=== PATIENT | male | born 1955 | race Caucasian/White ===

== ENCOUNTER → 2018-11-28 10:40 | Outpatient (CLI) | payer OTHER, SELFPAY ==
[2018-11-28 11:16] LABS: Influenza A and B by PCR Rapid Negative (Negative)
== END ==
PROVIDERS: Family Provider Naturopath; PCP Naturopath; Visit Provider Physician Assistant
DX: R68.89 Other general symptoms and signs (principal)
CPT/HCPCS: 87400

== ENCOUNTER → 2019-02-19 11:35 | Outpatient (CLI) | payer OTHER, SELFPAY | PROVIDERS: PCP Naturopath; Visit Provider Naturopath | DX: I49.9 Cardiac arrhythmia, unspecified (principal) | CPT/HCPCS: 93005; 93010 ==

== ENCOUNTER → 2019-03-14 07:27 | Outpatient (CLI) | payer OTHER, SELFPAY ==
--- NOTE | 2019-03-14 07:30 | DI.US.S_ITS ---
PROCEDURE: US THYROID INDICATIONS: HASHIMOTOS; HYPOTHYROIDISM TECHNIQUE: Real-time scanning was performed of the thyroid gland, with image documentation. COMPARISON: None. FINDINGS: Right: Thyroid lobe measures 2.8 x 1.1 x 0.9 cm, and demonstrates diffuse heteroechogenicity. No focal lesions. Left: Thyroid lobe measures 2.0 0.9 x 0.7 cm, and demonstrates diffuse heteroechogenicity. No focal lesions. Isthmus: 2.1 mm thick. IMPRESSION: 1. Diffuse heteroechogenicity within the thyroid without focal lesions. Overall, there is a mild atrophied appearance. Dictated by: Caroline Llanos M.D. on 03/14/2019 at 9:44 Approved by: Caroline Llanos M.D. on 03/14/2019 at 9:46
== END ==
PROVIDERS: PCP Naturopath; Visit Provider Naturopath
DX: E06.3 Autoimmune thyroiditis (principal); E03.9 Hypothyroidism, unspecified; R53.83 Other fatigue
CPT/HCPCS: 76536

== ENCOUNTER → 2020-02-27 15:34 | Outpatient (CLI) | payer OTHER, SELFPAY ==
--- NOTE | 2020-02-27 15:40 | DI.RAD.S_ITS ---
PROCEDURE: XR LUMBAR SPINE MIN 4V INDICATIONS: LOW BACK PAIN/ INJURY TECHNIQUE: 5 views of the lumbar spine were acquired. COMPARISON: None. FINDINGS: Bones: 5 nonrib-bearing vertebrae are present. There is normal bony alignment. No vertebral body compression fractures. No suspicious bony lesions. Mild multilevel and plate osteophyte formation throughout the lumbar and lower thoracic spine. Facet hypertrophy throughout the mid and lower lumbar spine. Soft tissues: Overlying bowel gas pattern is normal. No suspicious soft tissue calcifications. IMPRESSION: 1. Multilevel degenerative disc and facet disease. 2. No acute fracture. No osseous lesion. If symptoms and/or clinical suspicion for pathology persist, further assessment with repeat, or advanced imaging (e.g., CT, MRI, or bone scan) may be helpful for further assessment. Dictated by: Scar Vieira M.D. on 02/27/2020 at 17:21 Approved by: Scar Vieira M.D. on 02/27/2020 at 17:22
== END ==
PROVIDERS: PCP Naturopath; Referring Provider Naturopath; Visit Provider Naturopath
DX: M54.5 Low back pain (principal); M51.36 Other intervertebral disc degeneration, lumbar region; S39.92XA Unspecified injury of lower back, initial encounter; X58.XXXA Exposure to other specified factors, initial encounter
CPT/HCPCS: 72110

== ENCOUNTER 2022-10-19 11:17 | Emergency (ER) | payer MEDICARE, SELFPAY ==
[2022-10-19 11:41] VITALS: BP 126/81; PULSE 77; RESP 14; TEMP 36.7; O2SAT 97; BMI 25.1
[2022-10-19] MEDS: KETOROLAC 30 MG/ML VIAL IM (11:55)
--- NOTE | 2022-10-19 12:15 | DI.RAD.S_ITS ---
PROCEDURE: XR LUMBAR SPINE 2-3V INDICATIONS: low back pain TECHNIQUE: 3 views of the lumbar spine were acquired. COMPARISON: [facility], , XR LUMBAR SPINE MIN 4V, 02/27/2020, 15:43. FINDINGS: Bones: 5 [id number] vertebrae are present. There is normal bony alignment. No vertebral body compression fractures. No suspicious bony lesions. The disc heights are well preserved. Lower lumbar spine facet arthropathy is seen. Soft tissues: Overlying bowel gas pattern is normal. No suspicious soft tissue calcifications. Atherosclerotic calcification is noted. IMPRESSION: Age-appropriate degenerative change seen, with facet arthropathy. If it would be helpful for clinical management decision making, please consider a dedicated, scheduled lumbar spine MRI for further evaluation (assuming that there is no contraindication). Dictated by: Brendon Reese M.D. on 10/19/2022 at 11:36 Approved by: Brendon Reese M.D. on 10/19/2022 at 11:36
[2022-10-19] MEDS: methocarbamoL 500 MG TABLET 750 MG PO (13:50)
--- NOTE | 2022-10-19 14:13 | ED_ITS ---
HPI - Back Pain/Injury General Chief Complaint: Back Pain/Injury Stated Complaint: severe back pain, high bp, swoll prostate Time Seen by Provider: 10/19/22 12:15 Source: patient History of Present Illness HPI Narrative: This is a 67-year-old male who endorses history of BPH for the last 5 years, low back pain with degenerative disc and facet disease who presents to the emergency department for exacerbation of his low back pain with sciatica symptoms down his left leg. Patient is a contract by [email or web address], states that 3 weeks ago he exacerbated his low back by cutting a bunch of firewood and loading it, he is had 2 episodes of severe sharp low back pain with nerve pain down his leg with certain positions and his pain is worse with sitting. He denies numbness or tingling, groin paresthesia, states that his BPH is bothering him and he has had frequent voids at nighttime. He denies rectal pain, pain with defecation, denies fever, chills feeling poorly, or discharge. He denies pain deep to his penis and denies any urinary changes. He would like a referral to Urology and physical therapy to further assess his back pain and states that he does not want steroids if at all possible. He denies any traumatic injury, denies urinary retention or inability to complete void. [facility] to obtain care as he sees a wellness provider who is pay for service. Related Data Home Medications Medication Instructions Recorded Confirmed cholecalciferol (vitamin D3) 125 5,000 unit PO DAILY 03/07/19 10/19/22 mcg (5,000 unit) capsule multivitamin 1 cap PO DAILY 03/07/19 10/19/22 thyroid (pork) 120 mg tablet (WILDLIFE VETERINARIAN 120 mg PO QAM 10/19/22 10/19/22 Thyroid) Previous Rx's Medication Instructions Recorded lidocaine 5 % topical patch 1 patch topical DAILY #30 ea 10/19/22 (Lidoderm) methocarbamol 500 mg tablet 500 mg PO TID PRN muscle spasm #20 10/19/22 tabs Allergies Allergy/AdvReac Type Severity Reaction Status Date / Time No Known Drug Allergies Allergy Verified 10/19/22 11:48 Review of Systems Review of Systems ROS Unobtainable: All systems reviewed & are unremarkable except as noted in HPI and below Patient History Medical History Acne Chicken pox (~1977) Frozen shoulder (~2010) Hearing loss Herpes (~1955) Measles (~1958) Tinnitus Surgical History Anesthesia History of appendectomy (~1972) History of eye surgery (~2007) History of hernia repair (~1975) History of surgery on wrist (~1999) History of tonsillectomy (~1960) History of vascular surgery (~1971) Family History Father Congestive heart failure History of heart disease Mother Dementia Sister Stomach problems Grandfather Alzheimer's disease Grandmother Cancer Grandfather No problems noted. Grandmother Alzheimer's disease Social History Smoking Status: Never smoker second hand exposure: No alcohol intake: current (3 to 4 beers a week and a glass of wine once a week.) substance use type: does not use Smoking Status: Never smoker alcohol intake frequency: 0-2 drinks per day Substance Use Type: does not use Exam Narrative Exam Narrative: Reviewed vitals signs and nursing notes. General: cooperative, comfortable, in no acute distress, well groomed HEENT: symmetrical facial expressions, moist mucous membranes GI: abdomen soft, nontender to palpation, nondistended, without masses, rebound tenderness or exquisite tenderness with exam. MSK: moves all extremities, neurovascularly intact, no weakness, normal tone, sitting upright in chair without distress, nontender over lumbar spine, endorses left-sided sciatica which goes across the top of his hip and down the posterior of his left thigh, no weakness with dorsiflexion or plantar extension, ambulatory with steady gait. Skin: brisk capillary refill, without pallor or erythema Neuro: normal speech and cognition, A&O x3, ambulatory, clear speech Psych: mental status is grossly normal, congruent mood, normal affect, pleasant and cooperative Initial Vital Signs Initial Vital Signs: Vital Signs Temperature 98.1 F 10/19/22 11:41 Pulse Rate 77 10/19/22 11:41 Respiratory Rate 14 10/19/22 11:41 Blood Pressure 126/81 10/19/22 11:41 Pulse Oximetry 97 10/19/22 11:41 Oxygen Delivery Method 10/19/22 11:41 Course Orders Ordered: ED Orders 10/19/22 12:15 XR lumbar spine 2-3V Stat 10/19/22 14:07 Urine Microscopic Stat Discontinued Medications Ketorolac Tromethamine (Ketorolac 30 Mg/Ml Vial) 30 mg IM NOW ONE Stop: 10/19/22 11:54 Last Admin: 10/19/22 11:55 Dose: 30 mg Documented By: IG Methocarbamol (Methocarbamol 500 Mg Tablet) 750 mg PO NOW ONE Stop: 10/19/22 12:16 Last Admin: 10/19/22 13:50 Dose: 750 mg Documented By: GI Vital Signs Vital signs: Vital Signs - 8 hr 10/19/22 11:41 Temperature 98.1 F Pulse Rate 77 Respiratory Rate 14 Blood Pressure 126/81 Pulse Oximetry 97 Oxygen Delivery Method Room Air MDM - Back Pain/Injury Lab Data Labs: Lab Results 10/19/22 Range/Units 14:35 Urine RBC None seen (0-5/HPF) Urine WBC None seen (0-5/HPF) Urine Bacteria None seen (None) Ur Culture Indicated? Cult not indicated Micro UA Comment Microscopic normal Urine Dip Bedside Urine Glucose Negative Bedside Urine Bilirubin - Negative Bedside Urine Ketone - Negative Urine Specific [place] 1.010 Bedside Urine Occult Blood - Negative Bedside Urine pH 6.5 Bedside Urine Protein - Negative Bedside Urine Urobilinogen - Negative Bedside Urine Nitrite - Negative Bedside Urine Leukocytes - Negative Esterase Imaging Data Lumbar XR: Radiologist's Impression: PROCEDURE:? XR LUMBAR SPINE 2-3V ? INDICATIONS:? low back pain ? TECHNIQUE:? 3 views of the lumbar spine were acquired.? ? COMPARISON:? [facility], CR, XR LUMBAR SPINE MIN 4V, 02/27/2020, 15:43. ? FINDINGS:? ? Bones:? 5 [id number] vertebrae are present.? There is normal bony alignment.? No vertebral body compression fractures.? No suspicious bony lesions.? ? The disc heights are well preserved. Lower lumbar spine facet arthropathy is seen.? ? Soft tissues:? Overlying bowel gas pattern is normal.? No suspicious soft tissue calcifications.? Atherosclerotic calcification is noted.? ? ? IMPRESSION:? Age-appropriate degenerative change seen, with facet arthropathy. ? If it would be helpful for clinical management decision making, please consider a dedicated, scheduled lumbar spine MRI for further evaluation (assuming that there is no contraindication).? ? ? Dictated by: Brendon Reese M.D. on 10/19/2022 at 11:36 ? ? Approved by: Brendon Reese M.D. on 10/19/2022 at 11:36 ? MDM Narrative Medical decision making narrative: Chief Complaint: low back pain This is a 67-year-old male who endorses history of BPH for the last 5 years, low back pain with degenerative disc and facet disease who presents to the emergency department for exacerbation of his low back pain with sciatica symptoms down his left leg. Independent historian: Patient Differential diagnosis considered include: disc injury/herniation w/radiculopathy, acute fracture, renal colic, pyelonephritis, degenerative disc disease, cauda equina, AAA, osteomyelitis, epidural abscess, degenerative arthritis, spinal stenosis, trauma, ligamental injury, paraspinal or other muscular strain, chronic pain, osteoarthritis, and critical cord compression. I have reviewed the patient's vital signs and nursing notes as well as prior records if available. Pertinent Imaging reviewed: Lumbar x-ray shows multilevel degenerative disc and facet disease consistent with priors, no acute changes Course of care: Patient was treated with Toradol in the waiting room and oral methocarbamol when he came back to a room. I suspect likely musculoskeletal etiology strain/sprain with acute exacerbation of chronic low back pain. Patient's straight leg raise test was positive. No back pain red flags on history or physical. No history of IV substance use, or bony tenderness to palpation, no trauma, no bony tenderness to palpation , afebrile, no CVAT, no urinary symptoms. No bowel or urinary incontinence or retention, no saddle anesthesia, no new/worsening distal weakness, decreased reflexes or foot drop. Pt is nontoxic appearing. Patient has soft tissue tenderness to palpation. Pt is neurovascularly intact distally, afebrile, without immunosuppression or evidence of infection, peritoneal signs, hypertensive crisis, incontinence, or meningeal signs. UA is negative for WBCs, bacteria and RBCs, no indication for antibiotics at this time, gave patient contact information for Dr. Rueda to follow-up regarding his concern for BPH. Patient's symptoms improved over duration of stay with above-stated therapies. Patient was given contact information for urology to follow-up and for physical therapy and [facility]. He understands to follow up with his primary care provider for referral to physical therapy and for advanced imaging as necessary. Social considerations that may affect disposition: none Questions are addressed and there is agreement with the plan and for follow-up. Patient is appropriate for outpatient management. MIPS: This encounter doesn't have any diagnosis' associated with MIPS criteria. Discharge Plan Departure Patient Disposition: Home Clinical Impression: Lumbar back pain with radiculopathy affecting left lower extremity Activity Restrictions/Additional Instructions: *You have been diagnosed with lumbar radiculopathy with sciatica symptoms down your left leg. This is likely from the L5-S1 junction. Please follow-up with your primary care provider for a referral to physical therapy and for advanced outpatient imaging as needed or necessary. I recommend [facility] weiss and neisha Tucker and [facility] for orthopedic evaluation. You may benefit from steroid i njection or physical therapy alone. Thank you for trusting us with your care, please use the muscle relaxes every 6-8 hours as needed but do not take them before driving as they can make you drowsy. Take ibuprofen 800 mg with Tylenol 975 mg every 8 hours as needed for back pain with some food and water. Use topical lidocaine patches or other topical cream or salve of your preference. It is okay to do light massage but avoid exertional activities or strenuous work. *What to do: *Please continue to take your regular medications as directed. [ X] New medication prescriptions sent to your pharmacy: [ [facility] [place]] [ ] New medication written as a paper prescription [ ] No new medications given *Please follow up with your primary care provider in 2-3 days, call for an appointment. Let them know you were seen in the Emergency Department and that we asked that you be seen for follow-up. We will electronically transmit a record of today's note if your PCP is in our system *If you do not have a primary care provider please contact [phone] to establish care with one of the [facility] primary care providers. *Return to Emergency Department if you should have any new, worsening, or concerning symptoms, such as [fever greater than 101F, chills, worsening pain, persistent vomiting or other bothersome symptoms]. Prescriptions: New methocarbamol 500 mg tablet 500 mg PO TID PRN (Reason: muscle spasm) Qty: 20 0RF lidocaine [Lidoderm] 5 % adhesive patch,medicated 1 patch topical DAILY Qty: 30 0RF Rx Instructions: leave on most painful area for up to 12 hrs No Action multivitamin capsule 1 cap PO DAILY cholecalciferol (vitamin D3) 5,000 unit capsule 5,000 unit PO DAILY thyroid (pork) [WILDLIFE VETERINARIAN Thyroid] 120 mg tablet 120 mg PO QAM Label Comments: take 1 tablet by mouth once daily ON AN EMPTY STOMACH Referrals: [facility] [Provider Group] [facility] [place] [Outside] Annita Nava ND [Primary Care Provider] - Mel Vega ARNP [Physician] - As soon as possible (For a referral to physical therapy and for an MRI as needed) Aron Rueda MD [Physician] - (Please follow-up regarding your concerns about BPH) Stand Alone Forms: Patient Portal/API
[2022-10-19 14:46] VITALS: BP 126/64; PULSE 72; RESP 14; O2SAT 99
[2022-10-19 14:48] LABS: Bacteria Urine None Seen; Culture Indicated Urine Cult Not Indicated; RBC Urine None Seen (0-5/HPF); Urine Comments Microscopic Normal; WBC Urine None Seen (0-5/HPF)
== END 2022-10-19 14:46 | disposition home or self-care (01) ==
PROVIDERS: Emergency Provider Nurse Practitioner Critical Care Medicine; PCP Naturopath
DX: M54.16 Radiculopathy, lumbar region (principal)
CPT/HCPCS: 72100; 81003; 81015; 96372; 99283; 99284; J1885